=== PATIENT | female | born 1980 | race Caucasian/White ===

== ENCOUNTER → 2018-09-07 16:11 | Outpatient (CLI) | payer OTHER, SELFPAY ==
[2018-09-07 11:41] VITALS: BMI 28.0
[2018-09-10 11:17] LABS: HPV APTIMA, High Risk Negative (Negative)
== END ==
PROVIDERS: Family Provider Student in an Organized Health Care Education/Training Program; PCP Student in an Organized Health Care Education/Training Program; Referring Provider Nurse Practitioner Women's Health; Visit Provider Nurse Practitioner Women's Health
DX: Z12.4 Encounter for screening for malignant neoplasm of cervix (principal); N92.6 Irregular menstruation, unspecified
CPT/HCPCS: 87070; 87205; 87624; 88175; G0145

== ENCOUNTER 2021-03-30 03:42 | Emergency (ER) | payer OTHER, SELFPAY ==
[2021-03-30 03:43] VITALS: BP 152/102; PULSE 99; RESP 16; TEMP 37; O2SAT 98; BMI 31.0
[2021-03-30 03:46] VITALS: BP 152/102; PULSE 99; RESP 16; TEMP 37; O2SAT 97
[2021-03-30 03:47] VITALS: O2SAT 97; O2SAT 98
--- NOTE | 2021-03-30 04:04 | EKG12_ITS ---
Test Reason : DYSRHYTHMIA Blood Pressure : / mmHG Vent. Rate : 078 BPM Atrial Rate : 078 BPM P-R Int : 140 ms QRS Dur : 076 ms QT Int : 396 ms P-R-T Axes : 055 040 054 degrees QTc Int : 451 ms Normal sinus rhythm Normal ECG Confirmed by MARI MTAA, DERRICK ([id number]), writer editor GIBRAN WETZEL ([id number]) on 04/01/2021 1:35:41 PM Referred By: CHAPITO DUDLEY Confirmed By:DERRICK GUERRA MD
--- NOTE | 2021-03-30 04:05 | EDS_ITS ---
HPI History of Present Illness Chief Complaint: Shortness of Breath Informant: patient Narrative Narrative: Patient presenting with chest pain for the last several hours that has been keeping her from being able to sleep, this occurred 5-6 days ago, and as a result she went to the [facility] urgent care and had a chest x-ray was diagnosed with pneumonia. As result she was placed on antibiotics, doxycycline, and a Covid PCR was done that returned positive the next day. She states she started coughing on March 14, which was 2 weeks ago. She did have some chills, myalgias, loss of taste and smell, headache, some diarrhea. This past Covid test was the first 1 that she had. She was unvaccinated for Covid. She has had some dyspnea with exertion. The chest discomfort is pressure, right chest without radiation, nonpleuritic and no other associated symptoms with it. PFSH PFSH Medical History no medical history no medical history Home Medications doxycycline hyclate 100 mg PO DAILY 03/30/21 [History Last Taken Unknown] Allergy/AdvReac Type Severity Reaction Status Date / Time Sulfa (Sulfonamide Allergy Rash Verified 03/30/21 03:43 Antibiotics) nitrofurantoin AdvReac Diarrhea Verified 09/07/18 11:42 [From Macrobid] nitrofurantoin AdvReac Diarrhea Verified 09/07/18 11:42 macrocrystalline [From Macrobid] Family History Mother Thyroid cancer Grandmother Lung cancer Other Aortic stenosis Surgical History S/P Social History Smoking Status: Never smoker alcohol intake: never substance use type: does not use caffeine: Yes what type of physical activity do you participate in: none seatbelt use: always do you feel safe at home: Yes additional social history: - Prabhu- Works for [employer] 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 [employer] ROS ED Constitutional Constitutional ED: Reports body ache(s), chills, fatigue, fever(s), headache(s) and malaise Eyes Eyes: Denies change in vision or diplopia ENT ENT ED: Denies rhinorrhea or sore throat Cardiovascular Cardiovascular: Reports as per HPI and chest pain; Denies palpitations Respiratory/Chest Respiratory/Chest: Reports cough, dyspnea and dyspnea on exertion Gastrointestinal Gastrointestinal: Reports diarrhea; Denies abdominal pain, nausea or vomiting Genitourinary Genitourinary ED: Denies dysuria or hematuria Musculoskeletal Musculoskeletal: Reports myalgias; Denies back pain or neck pain Integumentary Denies abscess or rash Neurologic Neurologic: Reports headache(s); Denies paresthesias or weakness Psychiatric Psychiatric: Denies anxiety or suicidal thoughts EXAM Physical Exam Const Vital Signs: 03/30/21 03:43 03/30/21 03:46 03/30/21 03:47 Temperature 98.6 F 98.6 F Temperature Source Temporal Temporal Pulse Rate 99 99 Respiratory Rate 16 16 Respiratory Effort Non-Labored Short of Breath Respiratory Depth Normal Respiratory Pattern Normal Blood Pressure 152/102 H 152/102 H Blood Pressure Mean 118 118 Pulse Ox 98 97 97 Oxygen Delivery Method Room Air Room Air Room Air 03/30/21 04:46 03/30/21 04:53 Temperature 98 F Temperature Source Temporal Pulse Rate 77 79 Respiratory Rate 13 11 L Respiratory Effort Respiratory Depth Respiratory Pattern Blood Pressure 131/74 H 131/74 H Blood Pressure Mean 93 93 Pulse Ox 97 96 Oxygen Delivery Method Room Air Room Air Positive well nourished and well developed Constitutional Narrative: well-appearing, no distress General Appearance ED: well developed and NAD HEENT Reports moist mucous membranes normocephalic and atraumatic Eyes PERRL and EOMs intact bilaterally Neck full ROM and supple Resp normal respiratory effort and clear to auscultation bilaterally Cardio regular rate, regular rhythm and no murmurs Rate: Negative for tachycardic GI non-tender and non-distended Auscultation: normoactive bowel sounds Palpation: soft Back/Spine no CVA tenderness General Back: other FROM Extremity normal to inspection and no calf tenderness General Extremety ED: Negative for edema, pulses abnormal or tenderness General Extremity: Negative for edema or pulses abnormal Neuro oriented x3, CN's II-XII intact bilaterally and no sensory deficits noted Sensorium / Orientation: awake and alert Motor Exam: strength 5/5 throughout Skin no rashes or lesions noted and no wounds MDM MDM MDM Narrative Medical decision making narrative: Chest x-ray shows possibly some interstitial basilar abnormalities/pneumonitis, one view on my interpretation, but no other acute abnormalities. Patient said that her chest x-ray was interpreted as a right middle lobe pneumonia earlier this week. This morning her right heart border is clearly distinct suggesting that she does not have that at this time. Her D-dimer is well within normal limits, ruling out pulmonary embolus in context, and in context of her vital signs where she has no tachycardia, no hypoxemia I feel this is accurate/adequate to rule out PE. The rest of her testing is normal. On reevaluation and discussion, the patient suggest that maybe her discomfort is pleuritic. She states she really is not sure. She thinks it may even just be anxiety. The chest x-ray results returned after my discussion with her, as radiology is calling it pneumonia in the right lower lobe. It is relatively subtle. I do not have imaging from earlier in the week to compare to since she had it done at a different facility. It is possible that she had a bacterial superinfection on top of Covid, however this is doubtful since her vital signs are normal, she has no leukocytosis and her lungs are clear. 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 She may just be having discomfort in her right lower chest from the infiltrate. Regardless, I do not have evidence of any dangerous cause and she is cleared to be discharged with continued supportive care as well she was given Toradol prior to discharge. Lab Data Attestation: I reviewed the patient's lab results. Labs: Laboratory Results - last 24 hr 03/30/21 03/30/21 03/30/21 03:50 03:50 04:10 WBC 8.0 RBC 4.50 Hgb 11.6 L Hct 37.2 MCV 82.7 MCH 25.8 L MCHC 31.2 L RDW Std Deviation 46.2 H RDW Coeff of Erica 15.4 H Plt Count 582 H MPV 9.3 Immature Gran % (Auto) 1.400 H Neut % (Auto) 58.0 Lymph % (Auto) 29.6 [place] % (Auto) 8.4 Eos % (Auto) 1.9 Baso % (Auto) 0.7 Absolute Neuts (auto) 4.7 Absolute Lymphs (auto) 2.37 Nucleated RBC % 0 D-Dimer Quant (PE/DVT) 0.44 Sodium 136 Potassium 3.8 Chloride 102 Carbon Dioxide 28.0 Anion Gap 6 BUN 18 Creatinine 0.69 Estim Creat Clear Calc 102.47 Est GFR (MDRD) Af Amer 121 Est GFR (MDRD) Non-Af 100 BUN/Creatinine Ratio 26.1 H Glucose 115 H Calcium 8.8 Troponin I High Sens 6 Radiography Diagnostic Testing: Radiology Impression Chest X-Ray 03/30/21 04:15 IMPRESSION: Right lower lobe pneumonia. Electronically Signed: Wilfrid Mancilla MD at 5:55 EDT Tel , Service support , EKG Initial EKG: Attestation: I personally reviewed and interpreted this EKG as follows: Interpretation: Sinus Rhythm and No Acute Injury Pattern Comments: normal EKG Discharge Plan Triage Chief Complaint: Shortness of Breath ED Provider: Diogenes Frazier Dx/Rx/DC Orders Clinical Impression: Right-sided chest pain, Pneumonia due to COVID-19 virus Instructions: Coronavirus Disease 2019 (COVID-19): Caring for Yourself or Others Prescriptions: No Action doxycycline hyclate 100 mg Tablet 100 mg PO DAILY RF: 0 Primary Care Provider: Farhan Ashraf Referrals: Farhan Ashraf DO [Primary Care Provider] - 3-5 Days if not improving Activity Restrictions/Additional Instructions: You were less likely to be contagious after 14 days, but CDC guidelines recommend that you continue to isolate until your symptoms improve and/or you have a negative PCR test which you may consider repeating after the weekend if you are still not improving. Continue the antibiotic until finished. Disposition Disposition: Home, Self Care
--- NOTE | 2021-03-30 04:15 | RAD_ITS ---
STUDY: X-RAY CHEST REASON FOR EXAM: Female, 40 years old. chest pain, sob, cough, covid TECHNIQUE: Single AP portable view of the chest. COMPARISON: None. FINDINGS: There is ill-defined airspace opacity in the right lung base suggesting pneumonia. There is no demonstrated pleural abnormality. Normal size heart. Normal mediastinum and radha. Normal visualized pulmonary arteries. Normal visualized aortic arch and descending thoracic aorta. Normal visualized thoracic spine. Normal visualized ribs, clavicles, and shoulders. There is no demonstrated abnormality of the visualized soft tissue structures of the upper abdomen. RAD/Chest 1 View (Portable) IMPRESSION: Right lower lobe pneumonia. Electronically Signed: Wilfrid Mancilla MD at 5:55 EDT Tel , Service support ,
[2021-03-30 04:46] VITALS: BP 131/74; PULSE 77; RESP 13; TEMP 36.6; O2SAT 97
[2021-03-30 04:51] LABS: D-Dimer Quantitative (DVT/PE) 0.44 FEU/ug/m (0.27-0.49)
[2021-03-30 04:53] VITALS: BP 131/74; PULSE 79; RESP 11; O2SAT 96
[2021-03-30 04:57] LABS: Absolute Lymphocyte Count 2.37 X10^3/uL (0.83-4.51); Absolute Neutrophil Count 4.7 X10^3/uL (2.0-7.7); Basophil# 0.06 X10^3/uL; Basophil% 0.7 % (0-1); Eosinophil# 0.15 X10^3/uL; Eosinophils% 1.9 % (0-5); Hematocrit 37.2 % (37-47); Hemoglobin 11.6 g/dL (12.0-15.0); Lymphocyte # 2.37 X10^3/ul (0.83-4.51); Lymphocyte % 29.6 % (19-41); Mean Corp Hgb Conc 31.2 g/dL (32-36); Mean Corpuscular Hgb 25.8 pg (27.0-32.0); Mean Corpuscular Volume 82.7 fL (81-99); Mean Platelet Vol. 9.3 fl (6.2-12.0); Monocyte# 0.67 X10^3/uL; Monocyte% 8.4 % (0-10); NRBC Flagged by Analyzer 0 % (0-5); Neutrophil # 4.66 X10^3/uL (2.7-7.7); Platelet Count 582 K/mm3 (150-450); RBC Distribution Width CV 15.4 % (11.6-14.6); RBC Distribution Width SD 46.2 fl (35.1-43.9)
[2021-03-30 05:13] LABS: Anion Gap 6 (5-15); BUN 18 mg/dL (7-18); BUN/Creat Ratio 26.1 RATIO (10-20); Calcium,Total 8.8 mg/dL (8.5-10.1); Chloride 102 mmol/L (98-107); Creatinine, Serum 0.69 mg/dL (0.55-1.02); EST Glomerular Filtration Rate 100 mL/min (>60); Est Glom Filt Rate - Afr Amer 121 mL/min (>60); Estimated Creatinine Clearance 102.47 ml/min; Glucose 115 mg/dL (74-106); Potassium 3.8 mmol/L (3.5-5.1); Sodium Level 136 mmol/L (136-145); Troponin-I HS 6 pg/mL (3.0-54.0)
== END 2021-03-30 06:06 | disposition home or self-care (01) ==
PROVIDERS: Emergency Provider Emergency Medicine; PCP Student in an Organized Health Care Education/Training Program
DX: U07.1 COVID-19 (principal); J12.82 Pneumonia due to coronavirus disease 2019
CPT/HCPCS: 71045; 80048; 84484; 85025; 85379; 93005; 99284; A4216

== ENCOUNTER 2022-01-02 12:04 | Day surgery (SDC) | payer OTHER, SELFPAY ==
[2022-01-02] VITALS (8 sets, daily range): BP systolic 117–160; BP diastolic 66–92; PULSE 63–79; RESP 16–18; TEMP 36.3–36.8; O2SAT 97–100; BMI 32.0
[2022-01-02 12:32] LABS: Internal QC Validated? YES +Cl - CLEAR BKGD; Pregnancy, Urine Negative Negative
[2022-01-02] MEDS: Lactated Ringers 1,000 ML 15 ML IV (12:47)
--- NOTE | 2022-01-02 13:45 | EMB_PTH ---
PATIENT: SANGITA HINOJOSA LOC: [facility] U#:[id number] AGE/SX: 41/F ROOM: RE01/02/[address]: Dr. Caitlyn Montez, MDDOB: 1980 BED: DIS: 01/02/2022 SPEC #: [id number] RECD: 01/02/22 16:20 STATUS: LILO WARNER #: [id number] LISY: 01/02/22 13:[address]: Caitlyn Montez DEPT: SURGICAL PATHOLOGY RECD BY: Swapna Wallace ENTERED: 01/03/22 09:02 SP TYPE: ENDOM BX/C DAISY DR: Dr. Farhan Ashraf, Tissues: Endometrium, NOS Procedures: Surgery Specimen Level IV HEADER OPERATION: Hysteroscopy, D & C Symphion, polypectomy PRE-OP DIAGNOSIS: Abnormal uterine bleeding, endometrial polyp TISSUE SUBMITTED: Endometrial curettings and endometrial polyps MICROSCOPIC DIAGNOSIS Endometrial polyp and curettings: Polypoid fragments of disordered proliferative endometrium to focal simple hyperplasia without atypia. Focal squamous and glandular breakdown. Fragments of benign endocervix. AM:effie 01/07/2022 COMMENT Case has been reviewed in consultation with Dr. Roque who concurs with the above diagnosis. SUNDEEP:COBY MICROSCOPIC DESCRIPTION Slides are reviewed. GROSS DESCRIPTION Received in fixative is one container labeled with the patient's name and designated endometrial curettings and endometrial polyps. The specimen consists of multiple fragments of neely hemorrhagic soft tissue that in aggregate measure 5 x 3 x 0.3 cm. The specimen is totally submitted in two cassettes. / COBY:effie 01/03/2022 :5 CPT: 11361
--- NOTE | 2022-01-02 14:24 | DCINST_ITS ---
Discharge Instructions Procedure D&C Diet Discharge Diet: No restrictions Activity May resume sexual activity in: 1 week Dressing / Incision Call your doctor if you observe: Fever of 101 or Higher, Inability to urinate, Using more than 1 pad per hour and Uncontrolled pain Follow Up Care Please Follow Up With: Caitlyn Montez MD When: 1-2 weeks post OP if you need an appointment please call [phone] Test Results: Test results from this visit will be discussed in further detail at your follow- up appointment, if applicable. Discharge Plan Admission Attending Provider: Caitlyn Montez Primary Care Provider: Farhan Ashraf Discharge Orders/Prescriptions Prescriptions: No Action dextroamphetamine-amphetamine [Adderall] 20 mg Tablet 20 mg PO DAILY ergocalciferol (vitamin D2) [Vitamin D2] 1,250 mcg (50,000 unit) Capsule 1,250 mcg PO MO escitalopram oxalate [Lexapro] 20 mg Tablet 40 mg PO DAILY bupropion HCl [Wellbutrin XL] 300 mg Tablet Extended Release 24 Hr 300 mg PO DAILY Referrals / Follow Up: Farhan Ashraf DO [Primary Care Provider] - Disposition Disposition (needs filled in before D/C Order can be placed): Home, Self Care
--- NOTE | 2022-01-02 14:25 | OP.PCM_ITS ---
Problems Associated Problem List Diagnoses (1) Abnormal uterine bleeding (AUB): (2) Endometrial polyp: Report of Operation Date of Procedure: 01/02/22 Pre-Operative Diagnosis: Endometrial polyp, AUB Post-Operative Diagnosis: same Surgery/Procedure Performed:: hysteroscopy, D&C, polypectomy with symphion Description of Surgical Findings:: Thickened endometrial tissue with polypoid like apperance. Surgeon: Caitlyn Montez communications professional: None Type of Anesthesia: MAC Special Medications: none Specimen's removed: endometrial polypoid tissue and endometrial curettings Drains: none Estimated Blood Loss (mL): 5cc Fluids Replaced: 800 Description of Procedure: Informed consent was obtained the patient was taken the operating room she was placed in supine position. She was given anesthesia. She was then placed in the [facility] where she was prepped and draped in the normal sterile fashion. At this time the weighted speculum was placed in the posterior fornix of vagina. Single-tooth tenaculum was used to gently grasp the anterior lip the cervix. At this time the uterine cavity was sounded to approximately 9 cm. Gentle dilatation was performed once adequate dilatation of the cervix was achieved the hysteroscope using normal saline as a distention medium was placed. Tubal ostia visualized. Symphion resecting device used to obtain endometrial curettings- thickened endometrial tissue and polypoid like tissue present. gentle sharp curettate was performed with minimal tissue noted. hysteroscopy reinserted, minimal tissue noted and uterine cavity intact. Tissue will be sent to pathology for evaluation. Tenaculum removed. Good hemostasis. Instrument, lap count correct x 2. fluid deficeit approximately 600cc but there was a lot of leaking into under-drape. Vaginal Sweep was negative. Grafts/Implants Used: none Procedure Start Time: 14:45 Procedure Stop Time: 14:58 Complications none Admit VTE Documentation VTE Present on Admission: Yes VTE Mechan Device Prophylaxis: SCD's VTE Pharm Prophylaxis ordered?: No Reason prophylaxis not ordered:: Procedure Not Indicated
[2022-01-02 16:25] LABS: Cholesterol 232 mg/dL (200); High Density Lipoprotein 48 mg/dL; Triglycerides 128 mg/dL; Very Low Density Lipoprotein 26 mg/dL (5-40)
== END 2022-01-02 16:29 | disposition home or self-care (01) ==
LOC: SDC 12:06 → AC 12:08
PROVIDERS: Anesthesiology; PCP Student in an Organized Health Care Education/Training Program; Referring Provider Obstetrics & Gynecology; Visit Provider Obstetrics & Gynecology
PROC: 0UB98ZZ Excision of Uterus, Via Natural or Artificial Opening Endoscopic (ICD-10-PCS; CPT 58558; principal; 2022-01-02 13:30)
DX: N84.0 Polyp of corpus uteri (principal); N85.01 Benign endometrial hyperplasia; F32.A Depression, unspecified; F41.9 Anxiety disorder, unspecified; Z79.899 Other long term (current) drug therapy; G25.81 Restless legs syndrome
CPT/HCPCS: 58558; 80061; 81025; 88305; J7120; J2405

== ENCOUNTER 2022-08-31 11:02 | Emergency (ER) | payer OTHER, SELFPAY ==
[2022-08-31 11:03] VITALS: BP 143/106; PULSE 89; RESP 26; TEMP 35.8; O2SAT 96; BMI 33.7
--- NOTE | 2022-08-31 11:26 | RAD_ITS ---
EXAM: XR CHEST, 2 VIEWS CLINICAL INDICATION: cough TECHNIQUE: Frontal and lateral views of the chest. This report was created using [employer] report generation technology. COMPARISON: 03/30/2021. FINDINGS: LUNGS AND PLEURAL SPACES: Mild pulmonary hypoinflation. The lungs are clear. No pneumothorax. No effusion. HEART: Unremarkable. Cardiac silhouette not enlarged. MEDIASTINUM: Central airways and mediastinal contour are unremarkable. BONES/JOINTS: Unremarkable. SOFT TISSUES: Unremarkable. RAD/Chest PA and Lateral IMPRESSION: Normal chest radiographs and unchanged when compared to 03/30/2021. Electronically Signed: Arthur Rivera MD at 11:56 EST ,
[2022-08-31 11:30] VITALS: O2SAT 95
[2022-08-31 11:33] LABS: Absolute Lymphocyte Count 1.88 X10^3/uL (0.83-4.51); Absolute Neutrophil Count 3.8 X10^3/uL (2.0-7.7); Basophil# 0.05 X10^3/uL; Basophil% 0.8 % (0-1); Eosinophil# 0.21 X10^3/uL; Eosinophils% 3.4 % (0-5); Hematocrit 41.8 % (37-47); Hemoglobin 14.2 g/dL (12.0-15.0); Lymphocyte # 1.88 X10^3/ul (0.83-4.51); Lymphocyte % 30.2 % (19-41); Mean Corpuscular Hgb 29.2 pg (27.0-32.0); Mean Platelet Vol. 8.6 fl (6.2-12.0); Monocyte# 0.28 X10^3/uL; Monocyte% 4.5 % (0-10); NRBC Flagged by Analyzer 0 % (0-5); Neutrophil # 3.77 X10^3/uL (2.7-7.7); Neutrophil % 60.5 % (47-70); Platelet Count 332 K/mm3 (150-450); RBC Distribution Width CV 13.1 % (11.6-14.6); RBC Distribution Width SD 41.1 fl (35.1-43.9); Red Blood Count 4.86 M/mm3 (4.2-5.4); White Blood Count 6.2 K/mm3 (4.4-11.0)
--- NOTE | 2022-08-31 11:37 | ED.VIS.DYS ---
HPI History of Present Illness Chief Complaint: Shortness of Breath Informant: patient Narrative Narrative: Reports 9-day history of dyspnea productive cough. Seen urgent care [facility] 5 days ago reports x-ray diagnosed with pneumonia right lower. She is on doxycycline day 5. Reports symptoms not improving. Reports had negative COVID and flu test. No history of asthma or COPD. No recent travel or surgeries or immobilizations. No history of PE or DVT. PE Risk Factors: Negative for Cancer, OCP + Smoking + > 35, Prior DVT or PE, Recent immobilization, Recent surgery or [facility] Medical History Anemia Anxiety Arthritis Chest pain Depression History of edema History of Holter monitoring Non-smoker Restless legs Shortness of breath on exertion Home Medications bupropion HCl 300 mg 24 hr tablet, extended release (Wellbutrin XL) 300 mg PO DAILY 12/30/21 [History Last Taken Unknown] dextroamphetamine-amphetamine 20 mg tablet (Adderall) 20 mg PO DAILY 12/30/21 [History Last Taken Unknown] ergocalciferol (vitamin D2) 1,250 mcg (50,000 unit) capsule (Vitamin D2) 1,250 mcg PO MO 12/30/21 [History Last Taken Unknown] escitalopram oxalate 20 mg tablet (Lexapro) 40 mg PO DAILY 12/30/21 [History Last Taken Unknown] Allergy/AdvReac Type Severity Reaction Status Date / Time Sulfa (Sulfonamide Allergy Rash Verified 01/02/22 12:39 Antibiotics) nitrofurantoin AdvReac Diarrhea Verified 01/02/22 12:39 [From Macrobid] nitrofurantoin AdvReac Diarrhea Verified 01/02/22 12:39 macrocrystalline [From Macrobid] Family History Mother Thyroid cancer Grandmother Lung cancer Other Aortic stenosis Surgical History S/P Social History Smoking Status: Never smoker alcohol intake: never substance use type: does not use caffeine: Yes what type of physical activity do you participate in: none seatbelt use: always do you feel safe at home: Yes additional social history: - Prabhu- Works for [employer] 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 ROS ROS ED Constitutional Constitutional ED: Denies chills, fever(s) or sweats Eyes Eyes: Denies change in vision ENT ENT ED: Denies dysphagia or sore throat Cardiovascular Cardiovascular: Denies chest pain, leg edema, palpitations or racing heartbeat Respiratory/Chest Respiratory/Chest: Reports cough and dyspnea; Denies dyspnea on exertion Gastrointestinal Gastrointestinal: Denies abdominal pain, diarrhea, nausea or vomiting Genitourinary Genitourinary ED: Denies dysuria, hematuria or urinary frequency Musculoskeletal Musculoskeletal: Denies back pain, extremity pain or neck pain Integumentary Denies rash or wounds Neurologic Neurologic: Denies headache(s), paresthesias or weakness EXAM Physical Exam Const Vital Signs: 08/31/22 11:03 08/31/22 11:30 08/31/22 12:41 Temperature 96.4 F L Temperature Source Temporal Pulse Rate 89 68 Respiratory Rate 26 H 13 Respiratory Effort Short of Breath Labored Respiratory Depth Shallow Respiratory Pattern Tachypnea Blood Pressure 143/106 H 119/75 Blood Pressure Mean 118 89 Pulse Ox 96 95 Oxygen Delivery Method Room Air Room Air Room Air 08/31/22 13:00 Temperature Temperature Source Pulse Rate 70 Respiratory Rate 11 L Respiratory Effort Respiratory Depth Respiratory Pattern Blood Pressure 107/59 L Blood Pressure Mean Pulse Ox 99 Oxygen Delivery Method Positive well nourished and well developed General Appearance ED: well developed and NAD HEENT Reports moist mucous membranes normocephalic and atraumatic Eyes PERRL, EOMs intact bilaterally and conjunctivae normal General Eye ED: Yes normal appearance of both eyes Neck no lymphadenopathy and supple General: Negative for tenderness Chest Wall Chest: Negative for tenderness Resp normal respiratory effort and normal air movement Effort and Inspection: symmetric chest movement; Negative for respiratory distress Cardio regular rate, regular rhythm and no murmurs Peripheral Pulses: pulses 2+ throughout GI normal to inspection, nondistended, normoactive bowel sounds and non-tender Palpation: Negative for guarding or rebound tenderness present Back/Spine no CVA tenderness and no thoracic nor lumbar tenderness Extremity normal to inspection General Extremety ED: Negative for edema or tenderness General Extremity: Negative for edema Neuro oriented x3 and no sensory deficits noted Sensorium / Orientation: awake and alert Skin no rashes or lesions noted and no wounds MDM MDM MDM Narrative Medical decision making narrative: Interventions / MDM: Differential diagnosis: Pneumonia, bronchitis, viral syndrome Diagnosis considered but do not suspect: Pulmonary embolism however PERC criteria negative, no hypoxia My EKG interpretation: N/A Imaging independently reviewed and interpreted by myself: 2 view chest x-ray: No acute process, no infiltrate External documents reviewed: N/A Test considered but not ordered:N/A ED course: Patient presenting concerning no improvement of her pneumonia a day 4 of antibiotics. She is not hypoxic. There is no wheezing on exam. Pulse ox 96% on room air on arrival. Check labs with normal two-view chest x-ray also negative today. I was able to clinisync patient's imaging from 4 days a report did note concerning mild right upper lobe infiltrate. Discussed with patient she is currently treated appropriately with antibiotics. No current infiltrate with normal labs. Discussed finishing her doxycycline. She has inhaler at home with nebulizer. She has antitussives. Discussed adjunct therapies for her symptoms. No additional treatments at this time. Discussed may take up to 2 to 6 weeks to resolve with pneumonia. She understands. Return precautions. All questions were answered. Re-evaluation: stable Disposition discussed with patient/family/significant other: patient Case discussed with consulting clinician: N/A Lab Data Attestation: I reviewed the patient's lab results. Labs: Laboratory Results - last 24 hr 08/31/22 08/31/22 11:23 11:23 WBC 6.2 RBC 4.86 Hgb 14.2 Hct 41.8 MCV 86.0 MCH 29.2 MCHC 34.0 RDW Std Deviation 41.1 RDW Coeff of Erica 13.1 Plt Count 332 MPV 8.6 Immature Gran % (Auto) 0.600 Neut % (Auto) 60.5 Lymph % (Auto) 30.2 [place] % (Auto) 4.5 Eos % (Auto) 3.4 Baso % (Auto) 0.8 Absolute Neuts (auto) 3.8 Absolute Lymphs (auto) 1.88 Nucleated RBC % 0 Sodium 140 Potassium 4.0 Chloride 104 Carbon Dioxide 26.0 Anion Gap 10 BUN 11 Creatinine 0.77 Estim Creat Clear Calc 90.01 Est GFR (MDRD) Af Amer 106 Est GFR (MDRD) Non-Af 88 BUN/Creatinine Ratio 14.3 Glucose 101 Calcium 8.9 Radiography Diagnostic Testing: Clinical Impression(s) from Imaging Studies Chest X-Ray 08/31/22 11:26 IMPRESSION: Normal chest radiographs and unchanged when compared to 03/30/2021. Electronically Signed: Arthur Rivera MD at 11:56 EST , Discharge Plan Triage Chief Complaint: Shortness of Breath Other Complaint: Cough ED Provider: Manuel Whalen Dx/Rx/DC Orders Clinical Impression: Pneumonia, Dyspnea Instructions: ED Pneumonia (Adult) Prescriptions: No Action dextroamphetamine-amphetamine [Adderall] 20 mg Tablet 20 mg PO DAILY ergocalciferol (vitamin D2) [Vitamin D2] 1,250 mcg (50,000 unit) Capsule 1,250 mcg PO MO escitalopram oxalate [Lexapro] 20 mg Tablet 40 mg PO DAILY bupropion HCl [Wellbutrin XL] 300 mg Tablet Extended Release 24 Hr 300 mg PO DAILY Primary Care Provider: Farhan Ashraf Referrals: Farhan Ashraf DO [Primary Care Provider] - Activity Restrictions/Additional Instructions: Reviewed the report from 4 days ago from [facility] noted right upper lobe infiltrate, this is not seen today. Your labs are stable. Oxygen is normal. Finish your doxycycline. Continue your albuterol at home as needed for wheezing. It will take time for your symptoms to fully clear up. Follow-up with your doctor. Return if worsening symptoms. Disposition Disposition: Home, Self Care Discharge Date/Time: 08/31/22 13:05
[2022-08-31 11:46] LABS: Anion Gap 10 (5-15); BUN 11 mg/dL (7-18); BUN/Creat Ratio 14.3 RATIO (10-20); Calcium,Total 8.9 mg/dL (8.5-10.1); Chloride 104 mmol/L (98-107); Creatinine, Serum 0.77 mg/dL (0.55-1.02); EST Glomerular Filtration Rate 88 mL/min (>60); Est Glom Filt Rate - Afr Amer 106 mL/min (>60); Estimated Creatinine Clearance 90.01 ml/min; Glucose 101 mg/dL (74-106); Sodium Level 140 mmol/L (136-145)
[2022-08-31 12:41] VITALS: BP 119/75; PULSE 68; RESP 13; O2SAT 95
[2022-08-31 13:00] VITALS: BP 107/59; PULSE 70; RESP 11; O2SAT 99
== END 2022-08-31 13:05 | disposition home or self-care (01) ==
PROVIDERS: Emergency Provider Emergency Medicine; PCP Student in an Organized Health Care Education/Training Program; Visit Provider Emergency Medicine
DX: J18.9 Pneumonia, unspecified organism (principal); R06.00 Dyspnea, unspecified; F41.9 Anxiety disorder, unspecified; F32.A Depression, unspecified; Z79.899 Other long term (current) drug therapy
CPT/HCPCS: 71046; 80048; 85025; 99283; A4216

== ENCOUNTER 2023-05-08 09:00 | Day surgery (SDC) | payer OTHER, SELFPAY ==
--- NOTE | 2023-05-06 07:55 | HP.PCM.OB_ITS ---
History and Physical Date of Admission: 05/08/23 Pre-Op History and Physical ? HPI: The patient is a 42 year old female presenting for discussion of AUB/EM polyp. Had XRAY of pelvis- IUD not seen. Pt thinks she might have expelled it in January during a heavy menses. ? pre-operative visit. She is scheduled for Hysteroscopy D&C and polypectomy and insertion of liletta IUD, for AUB , EM polyp and EM hyperplasia on 05/08/23. Procedure discussed along with risks, benefits and complications. Other alternatives discussed for management. Consent form signed? Yes. ? ? PAST MEDICAL HISTORY PAST MEDICAL HISTORY Diagnosis Date ? Allergic rhinitis ? ? Back strain ? ? history of recurrent back strain ? Depression ? ? Infertility, female ? ? Iron deficiency anemia 03/09/2022 ? Multiple thyroid nodules 05/30/2015 ? Pure hypercholesterolemia 05/03/2010 ? Recurrent UTI 06/13/2009 ? ? PAST SURGICAL HISTORY PAST SURGICAL HISTORY Procedure Laterality Date ? DELIVERY ONLY ? ? ? , low transverse ? DELIVERY ONLY ? ? ? , low transverse ? HSG ? ? ? PAST SURGICAL HISTORY OF ? ? ? WISDOM TEETH ? ? ? CURRENT MEDICATIONS Current Outpatient Medications Medication Sig Dispense Refill ? levothyroxine (LEVOXYL) 25 mcg tablet Take 1 tablet by mouth daily before breakfast. Take on empty stomach. For Thyroid 30 tablet 3 ? escitalopram oxalate (LEXAPRO) 20 mg tablet TAKE 2 TABLETS ONCE DAILY (Patient not taking: Reported on 03/06/2023) 90 tablet 0 ? benzonatate (TESSALON PERLES) 100 mg capsule Take 2 capsules by mouth three times daily as needed. (Patient not taking: Reported on 03/06/2023) 30 capsule 0 ? dextroamphetamine-amphetamine (ADDERALL) 20 mg tablet Take 1 tablet by mouth once daily for 30 days. 30 tablet 0 ? dextroamphetamine-amphetamine (ADDERALL) 5 mg tablet Take 1 tablet by mouth as needed for up to 30 days. Take in the afternoon as needed in addition to the 20 mg taken in the morning. 30 tablet 0 ? buPROPion XL (WELLBUTRIN XL) 300 mg 24 hr tablet Take 300 mg by mouth once daily. ? ? ? iron sucrose (VENOFER) 200 mg in NaCl 0.9% 100 mL Inject 200 mg intravenously one time only for 1 dose. Please conduct a 30 minute post dose observation. 100 mL 9 ? levonorgestrel (MIRENA) 20 mcg/24 hours (8 yrs) 52 mg IUD 1 Each by INTRAUTERINE route as directed. 1 Each 0 ? cholecalciferol, Vitamin D3, (VITAMIN D3) 1,250 mcg (50,000 unit) cap capsule Take 1 capsule by mouth one time a week. 12 capsule 2 ? albuterol (PROVENTIL) 2.5 mg /3 mL (0.083 %) nebulizer solution Use 3 mL via nebulizer every 4 hours as needed for wheezing/shortness of breath. Use over 5-15minutes. (Patient not taking: Reported on 03/06/2023) 50 Vial 1 ? No current facility-administered medications for this visit. ? ? ALLERGIES: Sulfa (Sulfonamide Antibiotics), Macrobid [Nitrofurantoin Monohyd/M- Cryst], and Mold ? PERSONAL HISTORY: SOCIAL HISTORY Social History ? Tobacco Use ? Smoking status: Never ? Smokeless tobacco: Never Vaping Use ? Vaping Use: Never used Substance Use Topics ? Alcohol use: No ? Drug use: No ? FAMILY HISTORY: FAMILY HISTORY FAMILY HISTORY Problem Relation Age of Onset ? Cancer Mother ? ? Melanoma, Thyroid ? other (Aortic Stenosis) Father ? ? CAD, Early age. ? Breast Cancer Maternal Grandmother ? ? other (Epilepsy) Sister ? ? Heart Son ? ? Atrioventricular Canal Defect ? other (Down Syndrome) Son ? ? ? REVIEW OF SYMPTOMS: negative except as noted above PHYSICAL EXAMINATION: ? VITALS: Blood pressure 120/80, weight 216 lb (98 kg), last menstrual period 11/06/2022. ? GENERAL: The patient is well nourished, well hydrated in no acute distress. , The patient is oriented to time, place, and person. NECK: full range of motion LUNGS: Clear to auscultation bilaterally. no wheezes, rhonchi or rales HEART: Regular rate and rhythm, Normal heart sounds, and No murmurs or gallops ? IMPRESSION: AUB, Endometrial polyp, h/o endometrial hyperplasia ? PLAN: hysteroscopy, D&C, polypectomy, Insertion of liletta IUD ? Pt has been counseled on risks/benefits and alternatives of surgery including but not limited to anesthesia, bleeding, infection, uterine perforation with subsequent injury to pelvic structures including bowel, bladder, ureters and vessels. Pt wishes to proceed with surgery at this time. ? Pre and post op instructions reviewed ? I have reviewed and updated past medical and surgical history, medications and allergies Caitlyn Cotter MD ?5:38 PM
[2023-05-08] VITALS (7 sets, daily range): BP systolic 98–119; BP diastolic 57–64; PULSE 59–79; RESP 16–18; TEMP 36–36.7; O2SAT 94–100; BMI 33.7
[2023-05-08 09:42] LABS: Internal QC Validated? YES +Cl - CLEAR BKGD; Pregnancy, Urine Negative Negative
[2023-05-08] MEDS: Lactated Ringers 1,000 ML 15 ML IV (09:43)
--- NOTE | 2023-05-08 10:30 | EMB_PTH ---
PATIENT: SANGITA HINOJOSA LOC: [facility] U#:[id number] AGE/SX: 43/F ROOM: RE05/08/[address]: Dr. Caitlyn Montez, MDDOB: 1980 BED: DIS: 05/08/2023 SPEC #: [id number] RECD: 05/08/23 13:45 STATUS: LILO WARNER #: [id number] LISY: 05/08/23 10:[address]: Caitlyn Montez DEPT: SURGICAL PATHOLOGY RECD BY: Barbara Leigh ENTERED: 05/11/23 08:33 SP TYPE: ENDOM BX/C ASHIAHR DR: Dr. Farhan Ashraf, Tissues: Endometrium, NOS Procedures: Surgery Specimen Level IV HEADER OPERATION: Hysteroscopy, D&C symphion, IUD insertion PRE-OP DIAGNOSIS: AUB, endometrial polyp, history of endometrial hyperplasia TISSUE SUBMITTED: Endometrial curettings MICROSCOPIC DIAGNOSIS Endometrial curettings: Disordered proliferative endometrium. Fragments of myometrium SJ: 05/12/2023 MICROSCOPIC DESCRIPTION Slides are reviewed. GROSS DESCRIPTION Received in formalin is one container labeled with the patient name and designated endometrial curetting's. The specimen consists of multiple fragments of neely indurated tissue measuring in aggregate 4 x 3 x 0.3 cm. The specimen is totally submitted in two cassettes. / COBY:lynn 05/11/23 TC:5 CPT: 80689
--- NOTE | 2023-05-08 11:13 | DCINST_ITS ---
Discharge Instructions Diet Discharge Diet: No restrictions Activity May resume sexual activity in: 1 week Dressing / Incision Call your doctor if you observe: Fever of 101 or Higher, Inability to urinate, Using more than 1 pad per hour and Uncontrolled pain Follow Up Care Please Follow Up With: Caitlyn Montez MD When: 1-2 weeks post OP if you need an appointment please call [phone] Test Results: Test results from this visit will be discussed in further detail at your follow- up appointment, if applicable. Discharge Plan Admission Attending Provider: Caitlyn Montez Primary Care Provider: Farhan Ashraf Discharge Orders/Prescriptions Prescriptions: No Action levothyroxine 25 mcg tablet 25 mcg PO DAILY Patient Comments: TAKE 1 TABLET BY MOUTH DAILY BEFORE BREAKFAST. TAKE ON EMPTY STOMACH FOR THYROID. Referrals / Follow Up: Farhan Ashraf DO [Primary Care Provider] - Disposition Disposition (needs filled in before D/C Order can be placed): Home, Self Care
--- NOTE | 2023-05-08 11:14 | OP.PCM_ITS ---
Report of Operation Date of Procedure: 05/08/23 Pre-Operative Diagnosis: AUB, endometrial polyp, h/o endometrial hyperplasia Post-Operative Diagnosis: same Surgery/Procedure Performed:: Hysteroscopy, D&C, Insertion of Liletta IUD ([facility] Provided) Description of Surgical Findings:: Thickened endometrial tissue- no well defined polyp identified. Fluid deficit 500cc Surgeon: Caitlyn Montez thread cutter: None Type of Anesthesia: MAC Specimen's removed: Endometrial curettings Drains: none Estimated Blood Loss (mL): <5cc Fluids Replaced: 1000 Description of Procedure: Informed consent was obtained the patient was taken the operating room she was placed in supine position. She was given anesthesia. She was then placed in the [facility] where she was prepped and draped in the normal sterile fashion. At this time the weighted speculum was placed in the posterior fornix of vagina. Single-tooth tenaculum was used to gently grasp the anterior lip the cervix. At this time the uterine cavity was sounded to approximately 8 cm. Gentle dilatation was performed once adequate dilatation of the cervix was achieved the hysteroscope using normal saline as a distention medium was placed. Thickened Endometrial tissue but no masses or polyps noted. Symphion resecting device used to obtain endometrial curettings, after tissue removed able to visualize ostia bilaterally. Tissue will be sent to pathology for evaluation. Liletta IUD placed at the uterine fundus without complication- placement confirmed with hysteroscope. Strings cut to 2.5cm. Tenaculum removed. Good hemostasis. Instrument, lap count correct x 2. Vaginal Sweep was negative. Grafts/Implants Used: Liletta IUD Procedure Start Time: 11:35 Procedure Stop Time: 11:44 Complications none Admit VTE Documentation VTE Present on Admission: Yes VTE Mechan Device Prophylaxis: SCD's VTE Pharm Prophylaxis ordered?: No Reason prophylaxis not ordered:: Procedure Not Indicated
[2023-05-08] MEDS: Levonorgestrel IUD (Liletta) 1 EACH INTRA-UTER (11:40)
== END 2023-05-08 13:08 | disposition home or self-care (01) ==
LOC: SDC 09:05 → AC 09:06
PROVIDERS: PCP Student in an Organized Health Care Education/Training Program; Referring Provider Obstetrics & Gynecology; Visit Provider Obstetrics & Gynecology
PROC: 0UB98ZZ Excision of Uterus, Via Natural or Artificial Opening Endoscopic (ICD-10-PCS; CPT 58558; principal; 2023-05-08 10:15)
DX: N93.9 Abnormal uterine and vaginal bleeding, unspecified (principal); N84.0 Polyp of corpus uteri; E03.9 Hypothyroidism, unspecified; Z79.899 Other long term (current) drug therapy
CPT/HCPCS: 58558; 58300; 81025; 88305; J7120; J2405

== ENCOUNTER 2023-11-17 18:13 | Emergency (ER) | payer OTHER, SELFPAY ==
[2023-11-17 18:13] VITALS: BP 110/66; PULSE 82; RESP 16; TEMP 36.1; O2SAT 100; BMI 26.7
--- NOTE | 2023-11-17 19:39 | ED.VIS.GI ---
HPI HPI - GI History of Present Illness Chief Complaint: Abd Pain Detail of Chief Complaint: Vomiting and diarrhea and abdominal pain Narrative Narrative: Patient presents with vomiting and diarrhea that started 5 days ago. Patient states the vomiting only lasted about 24 hours and then resolved. She continues to have diarrhea about 8 times a day. Watery stools. She complains of intermittent abdominal pain and cramping. She denies eating any unusual or undercooked foods although she did eat at a restaurant 2 nights prior to her illness. She denies sick contacts. She denies recent antibiotic usage. [place] she is worried potentially about parasites also. She denies any blood in her stool or vomit. [facility] Medical History (Updated 11/17/23 @ 22:[address] Yon Fitzpatrick DO) Thyroid disease Depression Anxiety Arthritis Anemia Restless legs Non-smoker Shortness of breath on exertion History of Holter monitoring Chest pain Home Medications ?Medication ?Instructions ?Recorded ?Last Taken ?Type levothyroxine 25 mcg tablet 25 mcg PO DAILY 04/23/23 05/08/23 07:00 History loperamide 2 mg tablet (Diamode) 2 mg PO Q6H PRN loose stool #20 11/17/23 Unknown Rx tabs Allergy/AdvReac Type Severity Reaction Status Date / Time Sulfa (Sulfonamide Allergy Rash Verified 11/17/23 18:15 Antibiotics) nitrofurantoin (From AdvReac Diarrhea Verified 11/17/23 18:15 Macrobid) nitrofurantoin AdvReac Diarrhea Verified 11/17/23 18:15 macrocrystalline (From Macrobid) Family History Mother Thyroid cancer Grandmother Lung cancer Other Aortic stenosis Surgical History S/P Social History Smoking Status: Never smoker alcohol intake: never substance use type: does not use caffeine: Yes what type of physical activity do you participate in: none seatbelt use: always do you feel safe at home: Yes additional social history: - Prabhu- Works for [employer] 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 ROS ROS ED Review of Systems ROS Unobtainable: other Constitutional Constitutional ED: Reports lethargy; Denies chills, fever(s), sweats or weight loss Eyes Eyes: Denies blurry vision, change in vision or diplopia ENT ENT ED: Denies rhinorrhea or sore throat Cardiovascular Cardiovascular: Denies chest pain, orthopnea or racing heartbeat Respiratory/Chest Respiratory/Chest: Denies cough, dyspnea, dyspnea on exertion, orthopnea or sputum Gastrointestinal Gastrointestinal: Reports abdominal pain, diarrhea, nausea and vomiting Genitourinary Genitourinary ED: Denies dysuria, hematuria or urinary frequency Musculoskeletal Musculoskeletal: Denies arthralgias, back pain, myalgias or neck pain Integumentary Denies abscess, Abrasions or rash Neurologic Neurologic: Denies headache(s) or weakness Psychiatric Psychiatric: Denies anxiety, depression or suicidal thoughts Endocrine Endocrinology: Denies polydipsia, polyphagia or polyuria Hematologic/Lymphatic Hematologic/Lymphatic: Denies easy bleeding, easy bruising or lymphadenopathy Allergic/Immunologic Allergic/Immunologic ED: Denies mouth swelling, tongue swelling or urticaria EXAM Physical Exam Const Vital Signs: 11/17/23 18:13 11/17/23 20:13 11/17/23 22:00 Temperature 97 F L 98.9 F Temperature Source Temporal Temporal Pulse Rate 82 64 64 Respiratory Rate 16 18 18 Blood Pressure 110/66 136/78 H 126/78 H Blood Pressure Mean 80 97 94 Pulse Ox 100 98 98 Oxygen Delivery Method Room Air Room Air Room Air Positive well nourished and well developed General Appearance ED: well developed and NAD HEENT Reports TM's clear and moist mucous membranes normocephalic and atraumatic; Negative for trauma or tenderness Tympanic Membrane ED: Yes TM's clear Eyes PERRL and EOMs intact bilaterally General Eye ED: Negative for pale conjunctiva or scleral icterus Neck no lymphadenopathy, supple and no JVD General: Negative for tenderness Chest Wall inspection of chest normal and palpation of chest normal Chest: Negative for tenderness Resp normal respiratory effort and clear to auscultation bilaterally Effort and Inspection: Negative for respiratory distress or pain with movement Auscultation: Negative for rhonchi, wheezes or diminished lung sounds Cardio regular rate, regular rhythm, S1 normal heart sound, S2 normal heart sound and no murmurs Peripheral Pulses: pulses 2+ throughout GI normal to inspection, nondistended, normoactive bowel sounds, soft to palpation, non-tender, non-distended and no masses Back/Spine no CVA tenderness and no thoracic nor lumbar tenderness Extremity normal to inspection General Extremety ED: Negative for edema General Extremity: Negative for edema Neuro oriented x3, CN's II-XII intact bilaterally, no sensory deficits noted and gait normal Sensorium / Orientation: awake, alert, oriented to person, oriented to place and oriented to time Motor Exam: strength 5/5 throughout and strength abnormal Psych mental status grossly normal Skin no rashes or lesions noted and no wounds MDM MDM MDM Narrative Medical decision making narrative: Patient presents with nausea vomiting and diarrhea. Complaining of abdominal pain. IV line established. She was ordered a liter of the same fluid bolus. CBC with differential obtained showed a white count of 9.0 with hemoglobin 13.4 platelet count of 388. Patient had slight elevation in her AST of 51 and ALT was 150. Alkaline phosphatase was normal at 64. Serum Prag was negative. Urinalysis unremarkable. I ordered stool for enteric pathogen's as well as C. difficile and O&P. Patient was unable to give a stool sample. I did obtain a CT scan of the abdomen pelvis given patient elevated liver enzymes and complaint of diffuse abdominal pain. This was essentially unremarkable. Showed patient had an IUD in place and she had a 3.4 cm left ovarian cyst. Patient had some haziness to the mesentery which is nonspecific. At this point will discharge patient to home. Will write her prescription for Imodium and will write her a prescription to bring in a stool sample for enteric pathogen's as well as C. difficile and O&P's. Patient clinically looks well. Lab Data Attestation: I reviewed the patient's lab results. Labs: Laboratory Results - last 24 hr 11/17/23 11/17/23 19:40 20:11 WBC 9.0 RBC 4.67 Hgb 13.4 Hct 40.4 MCV 86.5 MCH 28.7 MCHC 33.2 RDW Std Deviation 48.6 H RDW Coeff of Erica 15.3 H Plt Count 388 MPV 9.6 Immature Gran % (Auto) 0.200 Neut % (Auto) 68.3 Lymph % (Auto) 21.3 [place] % (Auto) 7.0 Eos % (Auto) 2.9 Baso % (Auto) 0.3 Absolute Neuts (auto) 6.2 Absolute Lymphs (auto) 1.92 Nucleated RBC % 0 Sodium 136 Potassium 3.5 Chloride 104 Carbon Dioxide 30.0 Anion Gap 2 L BUN 15 Creatinine 0.76 Estim Creat Clear Calc 99.95 Est GFR (MDRD) Af Amer 107 Est GFR (MDRD) Non-Af 88 BUN/Creatinine Ratio 19.7 Glucose 89 Calcium 9.1 Total Bilirubin 0.60 AST 51 H ALT 150 H Alkaline Phosphatase 64 Total Protein 7.3 Albumin 3.8 Globulin 3.5 Albumin/Globulin Ratio 1.1 Serum , Qual NEGATIVE Urine Color Yellow Urine Clarity Sl. Cloudy Urine pH 6.0 Ur Specific [place] 1.015 Urine Protein 15 H Urine Glucose (UA) Normal Urine Ketones 15 H Urine Occult Blood 25 H Urine Nitrite Negative Urine Bilirubin 1 H Urine Urobilinogen 1 H Ur Leukocyte Esterase 500 H Urine RBC 0 SEEN Urine WBC 0-5 SEEN Ur Squamous Epith Cells 5-10 SEEN Calcium Oxalate Crystal 2+ Urine Bacteria 0 SEEN Urine Mucus 1+ Radiography Diagnostic Testing: Clinical Impression(s) from Imaging Studies Abdomen/Pelvis CT 11/17/23 20:27 IMPRESSION: No acute findings in the abdomen or pelvis. Nonobstructing left nephrolithiasis. 3.4 cm left ovarian cyst. Hazy mid mesentery, nonspecific finding. Electronically Signed: Sly Blankenship MD at 21:39 EDT Reading Location ID and State: [address] [place] [address] Tel , Service support , Discharge Plan Triage Chief Complaint: Abd Pain ED Provider: Yon Fitzpatrick Dx/Rx/DC Orders Clinical Impression: Gastroenteritis, Abdominal pain Instructions: ED Abdominal Pain Unkn Cause Fem, ED Gastroenteritis, Viral (Adult) Prescriptions: New loperamide [Diamode] 2 mg tablet 2 mg PO Q6H PRN (Reason: loose stool) Qty: 20 0RF No Action levothyroxine 25 mcg tablet 25 mcg PO DAILY Patient Comments: TAKE 1 TABLET BY MOUTH DAILY BEFORE BREAKFAST. TAKE ON EMPTY STOMACH FOR THYROID. Primary Care Provider: Farhan Ashraf Referrals: Farhan Ashraf DO [Primary Care Provider] - 3-5 Days Print Language: [place] Citizen Disposition Disposition: Home, Self Care
[2023-11-17 19:57] LABS: Absolute Lymphocyte Count 1.92 X10^3/uL (0.83-4.51); Absolute Neutrophil Count 6.2 X10^3/uL (2.0-7.7); Basophil# 0.03 X10^3/uL; Basophil% 0.3 % (0-1); Eosinophil# 0.26 X10^3/uL; Eosinophils% 2.9 % (0-5); Hematocrit 40.4 % (37-47); Hemoglobin 13.4 g/dL (12.0-15.0); Lymphocyte # 1.92 X10^3/ul (0.83-4.51); Lymphocyte % 21.3 % (19-41); Mean Corp Hgb Conc 33.2 g/dL (32-36); Mean Corpuscular Hgb 28.7 pg (27.0-32.0); Mean Corpuscular Volume 86.5 fL (81-99); Mean Platelet Vol. 9.6 fl (6.2-12.0); Monocyte# 0.63 X10^3/uL; NRBC Flagged by Analyzer 0 % (0-5); Neutrophil # 6.15 X10^3/uL (2.7-7.7); Neutrophil % 68.3 % (47-70); Platelet Count 388 K/mm3 (150-450); RBC Distribution Width CV 15.3 % (11.6-14.6); RBC Distribution Width SD 48.6 fl (35.1-43.9); Red Blood Count 4.67 M/mm3 (4.2-5.4)
[2023-11-17 20:11] LABS: Internal QC Validated? YES +Cl - CLEAR BKGD; Pregnancy, Serum, hCG Quali. NEGATIVE Negative
[2023-11-17 20:13] VITALS: BP 136/78; PULSE 64; RESP 18; O2SAT 98
[2023-11-17 20:17] LABS: Bacteria 0 SEEN /hpf (None Seen); Color, Urine Yellow (Yellow); Glucose, Dipstick Normal (Normal); Ketone-Dipstick 15 mg/dl (Negative); Leukocyte Esterase-Dipstick 500 /ul (Negative); Nitrite-Dipstick Negative (Negative); Occult Blood-Urine 25 /ul (Negative); Protein-Dipstick 15 mg/dl (Negative); Red Blood Cells-Urine 0 SEEN /hpf (0-5); Specific Gravity, Urine 1.015 (1.002-1.030); Urine Clarity Sl. Cloudy (Clear); Urine Urobilinogen 1 mg/dl (Normal)
[2023-11-17 20:20] LABS: Urine Bilirubin Dipstick 1 mg/dL (Negative)
[2023-11-17 20:22] LABS: ALB/GLOB Ratio 1.1 RATIO (0.9-2.4); AST(SGOT) 51 U/L (15-37); Alanine Aminotransfer ALT/SGPT 150 U/L (13-56); Albumin, Serum 3.8 g/dL (3.2-5.0); Alkaline Phosphatase 64 U/L (45-117); Anion Gap 2 (5-15); BUN 15 mg/dL (7-18); BUN/Creat Ratio 19.7 RATIO (10-20); Calcium,Total 9.1 mg/dL (8.5-10.1); Chloride 104 mmol/L (98-107); Creatinine, Serum 0.76 mg/dL (0.55-1.02); EST Glomerular Filtration Rate 88 mL/min (>60); Est Glom Filt Rate - Afr Amer 107 mL/min (>60); Estimated Creatinine Clearance 99.95 ml/min; Globulin 3.5 g/dL (2.2-4.2); Glucose 89 mg/dL (74-106); Potassium 3.5 mmol/L (3.5-5.1); Protein, Total 7.3 g/dL (6.4-8.2); Sodium Level 136 mmol/L (136-145)
--- NOTE | 2023-11-17 20:27 | CT_ITS ---
INDICATION: Vomiting and diarrhea for 5 days EXAMINATION: CT ABDOMEN AND PELVIS WITHOUT CONTRAST - CT Abdomen And Pelvis W/O Contrast Injection TECHNIQUE: Helically acquired images were obtained of the abdomen and pelvis without oral or IV contrast. A radiation dose optimization technique was used for this scan. IV Contrast dosage and agent: None. Oral contrast: None. COMPARISON: None. FINDINGS: LOWER CHEST: Lung bases are clear. No cardiomegaly or pericardial effusion. LIVER: Homogeneous. No focal mass. GALLBLADDER AND BILIARY TREE: No calcified gallstones. No gallbladder distension or wall edema. No intra- or extrahepatic biliary ductal dilation. PANCREAS: No focal cystic or solid mass. SPLEEN: Normal size without focal cystic or solid mass. ADRENAL GLANDS: No nodules. KIDNEYS AND URETERS: Nonobstructing left renal calculus. No hydronephrosis. PERITONEUM: No ascites or free air. Mild hazy mid mesentery. BOWEL: Normal appendix. No stomach or bowel distension. No focal inflammatory change. LYMPH NODES: No enlarged mesenteric or retroperitoneal lymph nodes. VESSELS: Aorta is non-dilated. URINARY BLADDER: Nondistended. REPRODUCTIVE ORGANS: No pelvic masses. 3.4 cm left ovarian cyst. IUD in place. ABDOMINAL WALL: Small fat-containing umbilical hernia. BONES: No acute or aggressive abnormality. CT/Abdomen/Pelvis without Cont IMPRESSION: No acute findings in the abdomen or pelvis. Nonobstructing left nephrolithiasis. 3.4 cm left ovarian cyst. Hazy mid mesentery, nonspecific finding. Electronically Signed: Sly Blankenship MD at 21:39 EDT ,
[2023-11-17] MEDS: 0.9% Normal Saline (1000mL) 1,000 ML 1000 ML IV (20:45)
[2023-11-17 20:50] LABS: Mucous, Urine 1+ /hpf (<or=2+); Squamous Epithelial Cells - UA 5-10 SEEN /hpf (5-10); White Blood Cells 0-5 SEEN /hpf (0-5)
[2023-11-17 20:51] LABS: Calcium Oxalate Crystals Ur 2+ /hpf (<or=2+)
[2023-11-17 22:00] VITALS: BP 126/78; PULSE 64; RESP 18; TEMP 37.2; O2SAT 98
[2023-11-17 22:39] VITALS: BP 106/77; PULSE 81; RESP 16; TEMP 36.2; O2SAT 99
[2023-11-17 22:40] VITALS: BP 124/66; PULSE 89; RESP 16; TEMP 36.4; O2SAT 99
== END 2023-11-17 22:41 | disposition home or self-care (01) ==
PROVIDERS: Emergency Provider Emergency Medicine; PCP Student in an Organized Health Care Education/Training Program; Visit Provider Emergency Medicine
DX: K52.9 Noninfective gastroenteritis and colitis, unspecified (principal)
CPT/HCPCS: 74176; 80053; 81001; 84703; 85025; 87177; 87209; 87493; 87506; 96360; 99283